=== PATIENT | female | born 1950 | race Caucasian/White ===

== ENCOUNTER 2017-05-25 11:53 | Outpatient (CLI) ==
[2017-05-25 13:06] LABS: BASOPHILS # (AUTO) 0.1 K/uL (0-0.2); EOSINOPHILS # (AUTO) 0.2 K/ul (0.0-0.7); EOSINOPHILS % (AUTO) 2.4 % (0.0-7.0); HEMATOCRIT 43.2 % (37.0-47.0); HEMOGLOBIN 14.6 g/dl (12.0-16.0); IMMATURE GRANULOCYTE % (AUTO) 0.3 % (0.0-5.0); LYMPHOCYTES # (AUTO) 2.8 K/uL (0.60-3.4); MEAN CORPUSCULAR HEMOGLOBIN 31.3 pg (27.0-31.0); MEAN CORPUSCULAR HGB CONC 33.8 (31.8-35.4); MEAN CORPUSCULAR VOLUME 92.5 fl (81.0-99.0); MONOCYTES # (AUTO) 0.7 K/uL (0.4-2.0); MONOCYTES % (AUTO) 9.6 (0-10); NEUTROPHILS # (AUTO) 3.4 K/ul (2.0-6.9); NEUTROPHILS % (AUTO) 47.7; PLATELET COUNT 241 10^3/uL (140-440); RED BLOOD COUNT 4.67 10^6/ul (4.20-5.40); WHITE BLOOD COUNT 7.05 K/ul (4.6-10.2)
[2017-05-25 13:25] LABS: ALBUMIN/GLOBULIN RATIO 1.11; ANION GAP 16.1; BILIRUBIN,TOTAL 0.57 mg/dL (0.00-1.20); BUN/CREATININE RATIO 7.95; CHOL/HDL RATIO 3.6 (4.5-5.5); CREATININE 0.88 mg/dL (0.60-1.30); POTASSIUM 4.1 mmol/L (3.5-5.10); TOTAL PROTEIN 7.6 g/dL (5.8-8.1)
== END 2017-05-25 11:54 | disposition home or self-care (01) ==
LOC: LAB 11:53
PROVIDERS: ATTEND Nurse Practitioner Family
DX: E75.6 Lipid storage disorder, unspecified (principal); I10 Essential (primary) hypertension
CPT/HCPCS: 36415; 80053; 80061; 84443; 85025

== ENCOUNTER 2017-08-21 16:08 | Outpatient (CLI) ==
[2017-08-21 16:15] LABS: BASOPHILS # (AUTO) 0.1 K/uL (0-0.2); BASOPHILS % (AUTO) 0.7 % (0.0-3.0); EOSINOPHILS # (AUTO) 0.1 K/ul (0.0-0.7); EOSINOPHILS % (AUTO) 1.2 % (0.0-7.0); HEMATOCRIT 42.1 % (37.0-47.0); HEMOGLOBIN 14.6 g/dl (12.0-16.0); IMMATURE GRANULOCYTE % (AUTO) 0.2 % (0.0-5.0); LYMPHOCYTES # (AUTO) 2.8 K/uL (0.60-3.4); LYMPHOCYTES % (AUTO) 33.6 (10.0-50.0); MEAN CORPUSCULAR HEMOGLOBIN 31.4 pg (27.0-31.0); MEAN CORPUSCULAR HGB CONC 34.7 (31.8-35.4); MEAN CORPUSCULAR VOLUME 90.5 fl (81.0-99.0); MONOCYTES # (AUTO) 0.6 K/uL (0.4-2.0); MONOCYTES % (AUTO) 7.4 (0-10); NEUTROPHILS # (AUTO) 4.8 K/ul (2.0-6.9); NEUTROPHILS % (AUTO) 56.9; PLATELET COUNT 279 10^3/uL (140-440); RED BLOOD COUNT 4.65 10^6/ul (4.20-5.40); WHITE BLOOD COUNT 8.46 K/ul (4.6-10.2)
[2017-08-21 17:30] LABS: ALBUMIN 3.8 g/dL (3.4-5.0); ALBUMIN/GLOBULIN RATIO 1.06; ANION GAP 14.7; BILIRUBIN,TOTAL 0.53 mg/dL (0.00-1.20); BUN/CREATININE RATIO 9.75; CALCIUM 10.2 mg/dL (8.2-10.2); CREATININE 0.82 mg/dL (0.60-1.30); POTASSIUM 3.7 mmol/L (3.5-5.10); TOTAL PROTEIN 7.4 g/dL (5.8-8.1)
== END 2017-08-21 16:09 | disposition home or self-care (01) ==
LOC: LAB 16:08
PROVIDERS: ATTEND Nurse Practitioner Family
DX: F41.9 Anxiety disorder, unspecified (principal); I10 Essential (primary) hypertension; E75.6 Lipid storage disorder, unspecified
CPT/HCPCS: 36415; 80053; 84439; 84443; 85025

== ENCOUNTER 2017-08-22 13:20 | Outpatient (CLI) ==
--- NOTE | 2017-08-22 13:59 | US ---
Exam: Ferrer-scale and color Doppler ultrasonographic evaluation of the internal carotid arteries. Comparison: None available. Reason for exam: Dizziness and giddiness FINDINGS: There is a moderate amount of atheromatous plaque seen in the proximal right internal fish tid artery at the level of the bulb. The right external carotid artery measures 80 / 10 cm/sec. The right common carotid artery measures 50 / 20 cm/sec. The right internal carotid artery peak systolic velocity measures 80 cm/sec. The right internal carotid artery/CCA PSV ratio measures 1.7. The right internal carotid artery end-diastolic velocity measures 30 cm/sec. There is normal antegrade right vertebral artery flow. There is a moderate amount of plaque seen in the proximal left internal and external carotid arteries . The left external carotid artery measures 32 / 5 cm/sec. The left common carotid artery measures 60 / 20 cm/sec. The left internal carotid artery peak systolic velocity measures 80 cm/sec. The left internal carotid artery/CCA PSV ratio measures 1.2. The left internal carotid artery end-diastolic velocity measures 30 cm/sec. There is normal antegrade left vertebral artery flow. Impression: No significant stenotic disease is seen by peak systolic velocity measurements in either the right or left internal carotid arteries.
== END 2017-08-22 13:21 | disposition home or self-care (01) ==
LOC: RAD 13:20
PROVIDERS: ATTEND Nurse Practitioner Family
DX: R42 Dizziness and giddiness (principal); F17.200 Nicotine dependence, unspecified, uncomplicated

== ENCOUNTER 2017-09-05 13:45 | Outpatient (CLI) | payer OTHER ==
--- NOTE | 2017-09-05 14:57 | CT ---
EXAM: CT ABDOMEN AND PELVIS HISTORY: Generalized abdominal pain TECHNIQUE: CT abdomen and pelvis without intravenous contrast. Images were reconstructed using 5 mm section thickness. Reformations were prepared. COMPARISON: None FINDINGS: Diagnostic limitations exist without including contrast enhanced images. No focal hepatic or splenic lesions identified. Gallbladder appears to be absent. Pancreas and adrenal glands are within rosalina l limits. There is a 3.8 cm cystic mass of the upper right renal cortex probably representing a cyst . Kidneys and visualized ureters were otherwise unremarkable. Severe atherosclerotic disease withou t aneurysmal caliber of the aorta. Stomach is within normal limits. What may represent a few portions of the appendix appear normal. There is mild wall thickening of the transverse colon and the descending colon may have mild surround ing fat stranding. No diverticula are noticed at these levels. Uterus has a few coarse calcificatio ns consistent with small fibroids. Urinary bladder is within normal limits. There is no ascites. N onobstructive bowel gas pattern. No ventral abdominal wall hernia. The bones reveal no acute abnormality. Lung bases are free of acu te infiltrate and there is no pneumoperitoneum identified. IMPRESSION: 1. Findings suggesting probable mild colitis extending from the transverse into the rectum. No bowel obstruction or ascites. No intra-abdominal abscess or free air. Consider infectious, inflammatory o r ischemic etiologies. 2. Severe atherosclerotic disease.
[2017-09-05 18:06] LABS: BASOPHILS # (AUTO) 0.1 K/uL (0-0.2); BASOPHILS % (AUTO) 0.7 % (0.0-3.0); EOSINOPHILS # (AUTO) 0.2 K/ul (0.0-0.7); EOSINOPHILS % (AUTO) 2.3 % (0.0-7.0); HEMATOCRIT 42.4 % (37.0-47.0); HEMOGLOBIN 14.6 g/dl (12.0-16.0); IMMATURE GRANULOCYTE % (AUTO) 0.3 % (0.0-5.0); LYMPHOCYTES % (AUTO) 29.2 (10.0-50.0); MEAN CORPUSCULAR HEMOGLOBIN 31.1 pg (27.0-31.0); MEAN CORPUSCULAR HGB CONC 34.4 (31.8-35.4); MEAN CORPUSCULAR VOLUME 90.4 fl (81.0-99.0); MONOCYTES # (AUTO) 0.9 K/uL (0.4-2.0); MONOCYTES % (AUTO) 8.6 (0-10); NEUTROPHILS # (AUTO) 6.1 K/ul (2.0-6.9); NEUTROPHILS % (AUTO) 58.9; PLATELET COUNT 270 10^3/uL (140-440); RED BLOOD COUNT 4.69 10^6/ul (4.20-5.40); WHITE BLOOD COUNT 10.42 K/ul (4.6-10.2)
[2017-09-05 18:18] LABS: ALBUMIN 3.3 g/dL (3.4-5.0); ALBUMIN/GLOBULIN RATIO 0.92; ANION GAP 12.7; BILIRUBIN,TOTAL 0.48 mg/dL (0.00-1.20); BUN/CREATININE RATIO 8.53; CALCIUM 9.8 mg/dL (8.2-10.2); CREATININE 0.82 mg/dL (0.60-1.30); POTASSIUM 3.7 mmol/L (3.5-5.10); TOTAL PROTEIN 6.9 g/dL (5.8-8.1)
== END 2017-09-05 13:46 | disposition home or self-care (01) ==
LOC: RAD 13:45
PROVIDERS: ATTEND Nurse Practitioner Family
DX: R10.84 Generalized abdominal pain (principal); R19.7 Diarrhea, unspecified
CPT/HCPCS: 36415; 80053; 82150; 83690; 85025

== ENCOUNTER 2017-11-11 09:36 | Emergency (ER) ==
[2017-11-11 09:48] VITALS: BP 143/97; TEMP 98.4; BMI 20.1
[2017-11-11] MEDS ORDERED: ZOFRAN 4 MG/2 ML IVP STA (10:10)
[2017-11-11] MEDS ORDERED: DEMEROL 25 MG/ML VIAL IVP STA (10:10)
[2017-11-11] MEDS ORDERED: SODIUM CHLORIDE 500 ML IV STA (10:10)
--- NOTE | 2017-11-11 10:16 | ED.PDOC ---
General ED Provider: Dr. YADIRA KELLY Chief Complaint: Nausea/Vomiting Stated Complaint: Been voming since morning, 4- 5 time, no blood, no bile. had abdominal pain and cramping. Time Seen by Physician: 10:15 Mode of Arrival: Walk-In Information Source: Patient Primary Care Provider: YADIRA KELLY[facility] Nursing and Triage Documentation Reviewed and Agree: Yes GI Complaint Exam - Vomiting/Diarrhea Complaint/Exam Symptoms Are: Still present Episodes of Vomiting over last 24 Hours: 4 Episodes of Diarrhea Over Last 24 Hours: 0 Initial Severity: Moderate Current Severity: Mild Character of Vomiting: Reports: Non-bilious Aggravating: Reports: Food, Position, Movement Alleviating: Reports: None Associated Signs and Symptoms: Reports: Light-headedness, Abdominal pain, Cramping. Denies: Dizziness, Melena, Hematemesis, Fever Abdominal Findings: Absent: Pulsatile mass, Abdominal distention, Unequal femoral pulses, Rebound tenderness Differential Diagnoses: Gastritis, Viral Gastroenteritis, Bacterial Gastroenteritis Review of Systems - Review Of Systems Constitutional: Reports: Malaise, Weakness Eyes: Reports: No symptoms Ears, Nose, Mouth, Throat: Reports: No symptoms Respiratory: Reports: No symptoms Cardiac: Reports: No symptoms GI: Reports: Abdominal pain, Nausea, Vomiting : Reports: No symptoms Musculoskeletal: Reports: No symptoms Skin: Reports: No symptoms Neurological: Reports: No symptoms Endocrine: Reports: No symptoms Hematologic/Lymphatic: Reports: No symptoms All Other Systems: Reviewed and Negative Past Medical History - Past Medical History Previously Healthy: Yes Endocrine: Reports: None Cardiovascular: Reports: Hypertension Respiratory: Reports: None Hematological: Reports: None Gastrointestinal: Reports: None Genitourinary: Reports: None Neuro/Psych: Reports: Anxiety Musculoskeletal: Reports: Back Pain, Joint Pain Cancer: Reports: None Last Menstrual Period: post menopausal - Surgical History General Surgical History: Reports: None - Family History Family History: Reports: None - Social History Smoking Status: Current every day smoker, Heavy tobacco smoker Smoking Cessation Counseling Time: > 10 min Hx Substance Use: No Alcohol Screening: None Physical Exam - Physical Exam Appearance: Ill-appearing, Thin Eyes: KRISTINE, EOMI, Conjunctiva clear ENT: Ears normal, Nose normal, Oropharynx normal Respiratory: Airway patent, Breath sounds clear, Breath sounds equal, Respirations nonlabored Cardiovascular: RRR, Pulses normal, No rub, No murmur GI/: Soft, Tender, Bowel sounds hyperactive Musculoskeletal: Normal strength, ROM intact, No edema, No calf tenderness Skin: Warm, Dry, Normal color Neurological: Sensation intact, Motor intact, Reflexes intact, Cranial nerves intact, Alert, Oriented Psychiatric: Affect appropriate, Mood appropriate Critical Care Note - Critical Care Note Total Time (mins): 15 Course - Course Hematology/Chemistry: 11/11/17 10:18 Orders, Labs, Meds: Lab Review 11/11/17 10:18 WBC 9.66 RBC 4.89 Hgb 15.3 Hct 44.3 MCV 90.6 MCH 31.3 H MCHC 34.5 RDW Coeff of Collette 13.8 Plt Count 245 Immature Gran % (Auto) 0.4 Neut % (Auto) 87.6 Lymph % (Auto) 6.1 L [place] % (Auto) 3.6 Eos % (Auto) 1.9 Baso % (Auto) 0.4 Immature Gran # (Auto) 0.0 Neut # 8.5 H Lymph # 0.6 [place] # 0.4 Eos # 0.2 Baso # 0.0 Orders Category Date Time Status ED IV/MEDIPORT/POWERPORT .ONCE EMERGENCY 11/11/17 10:10 Active CBC W/ AUTO DIFF Stat LAB 11/11/17 10:18 Completed COMPREHENSIVE METABOLIC PANEL Stat LAB 11/11/17 10:18 Received 0.9 % Sodium Chloride [Saline Flush] MEDS 11/11/17 10:10 Active 1 syr IVF PRN PRN Meperidine HCl/Pf [Demerol 25 mg/ml Vial] MEDS 11/11/17 10:10 Discontinued 25 mg IVP ONCE STA Ondansetron HCl/Pf [Zofran 4 mg/2 ml] MEDS 11/11/17 10:10 Discontinued 4 mg IVP ONCE STA Sodium Chloride 0.9% [Sodium Chloride] 500 ml MEDS 11/11/17 10:[address] ABDOMEN/PELVIS WO CONTRAST Stat RADS 11/11/17 10:10 Taken Medications Generic Name Dose Route Start Last Admin Trade Name Freq PRN Reason Stop Dose Admin Sodium Chloride 500 mls @ 500 mls/hr 11/11/17 10:10 Sodium Chloride IV 11/11/17 11:09 BOLUS STA Sodium Chloride 1 syr 11/11/17 10:10 Saline Flush IVF PRN PRN To flush IV Discontinued Medications Generic Name Dose Route Start Last Admin Trade Name La PRN Reason Stop Dose Admin Meperidine HCl 25 mg 11/11/17 10:10 Demerol 25 Mg/Ml Vial IVP 11/11/17 10:11 ONCE STA Ondansetron HCl 4 mg 11/11/17 10:10 Zofran 4 Mg/2 Ml IVP 11/11/17 10:11 ONCE STA Vital Signs: Temp Pulse Resp BP Pulse Ox 11/11/17 09:37 98.4 F 89 20 143/97 H 96 Departure - Departure Time of Disposition: 10:33 Disposition: HOME SELF-CARE Discharge Problem: Gastroenteritis Instructions: Gastroenteritis (ED) Condition: Good Pt referred to PMD for follow-up: Yes Additional Instructions: Increase Hydration soft diet for 3-4 days If not better needs f/u with PMD Prescriptions: Ondansetron HCl [Zofran] 4 mg PO TID #14 tablet Allergies/Adverse Reactions: Allergies codeine Allergy (Severe, Verified 11/11/17 09:48) itching fexofenadine HCl [From [place]] Allergy (Mild, Verified 11/11/17 09:48) flu like symptoms hydrocodones Allergy (Severe, Uncoded 05/25/17 09:21) difficulty breathing Patient will notify drugstore Home Medications: Ambulatory Orders Cetirizine HCl [Zyrtec] 10 mg PO d 05/25/17 Dicyclomine HCl [Bentyl] 10 mg PO QID PRN 05/25/17 Methocarbamol [Robaxin-750] 750 mg PO BID PRN 05/25/17 Ondansetron HCl [Zofran] 4 mg PO TID #14 tablet 11/11/17 Disposition Discussed With: Patient
[2017-11-11 10:24] LABS: BASOPHILS % (AUTO) 0.4 % (0.0-3.0); EOSINOPHILS # (AUTO) 0.2 K/ul (0.0-0.7); EOSINOPHILS % (AUTO) 1.9 % (0.0-7.0); HEMATOCRIT 44.3 % (37.0-47.0); HEMOGLOBIN 15.3 g/dl (12.0-16.0); IMMATURE GRANULOCYTE % (AUTO) 0.4 % (0.0-5.0); LYMPHOCYTES # (AUTO) 0.6 K/uL (0.60-3.4); LYMPHOCYTES % (AUTO) 6.1 (10.0-50.0); MEAN CORPUSCULAR HEMOGLOBIN 31.3 pg (27.0-31.0); MEAN CORPUSCULAR HGB CONC 34.5 (31.8-35.4); MEAN CORPUSCULAR VOLUME 90.6 fl (81.0-99.0); MONOCYTES # (AUTO) 0.4 K/uL (0.4-2.0); MONOCYTES % (AUTO) 3.6 (0-10); NEUTROPHILS # (AUTO) 8.5 K/ul (2.0-6.9); NEUTROPHILS % (AUTO) 87.6; PLATELET COUNT 245 10^3/uL (140-440); RED BLOOD COUNT 4.89 10^6/ul (4.20-5.40); WHITE BLOOD COUNT 9.66 K/ul (4.6-10.2)
--- NOTE | 2017-11-11 10:40 | CT ---
EXAM: CT scan of the abdomen and pelvis without contrast HISTORY: Abdominal pain TECHNIQUE: Imaging of the abdomen and pelvis was performed without contrast. 3 mm thin axial images and coronal and sagittal reconstructions were provided for interpretation. Comparison 09/05/2017 CT scan of the abdomen and pelvis. FINDINGS: The patient has had previous cholecystectomy. The pancreas, adrenal glands and kidneys ap pear normal. The proximal ureters are normal size. There is stable appearance of a prominent cyst s een arising from the upper pole of the right kidney. The small bowel loops are normal in caliber. Th ere is no free air. No acute abnormalities are seen within the anterior abdominal wall. The helical images obtained through the pelvis demonstrate a normal appearance of the rectum, urinary bladder. There is no free fluid seen within the pelvis. There is a calcified fibroid seen within t he uterus. The appendix appears normal. Lung bases are clear. No lytic or blastic lesions are seen w ithin the osseous structures. No retroperitoneal abnormalities are seen. IMPRESSION: There is no bowel obstruction or acute inflammatory change seen within the abdomen and p teresa. There is no ureteral obstruction. There has been previous cholecystectomy.
[2017-11-11 10:41] LABS: ALBUMIN/GLOBULIN RATIO 1.08; ANION GAP 15.3; BILIRUBIN,TOTAL 0.72 mg/dL (0.00-1.20); BUN/CREATININE RATIO 15.9; CALCIUM 9.9 mg/dL (8.2-10.2); CREATININE 0.88 mg/dL (0.60-1.30); POTASSIUM 4.3 mmol/L (3.5-5.10); TOTAL PROTEIN 7.7 g/dL (5.8-8.1)
== END 2017-11-11 12:07 | disposition home or self-care (01) ==
LOC: ED 09:36
DX: K52.9 Noninfective gastroenteritis and colitis, unspecified (principal); F17.210 Nicotine dependence, cigarettes, uncomplicated
CPT/HCPCS: 36415; 80053; 85025; 96361; 96374; 99283

== ENCOUNTER 2018-01-19 12:44 | Outpatient (CLI) ==
--- NOTE | 2018-01-19 14:04 | CT ---
EXAM: CT of the pelvis without contrast History: Pelvic pain. Comparison: CT lumbar spine 01/19/2018, CT abdomen pelvis 11/11/2017 Technique: Multiplanar CT images through the pelvis were obtained without the administration of IV c ontrast Findings: No bladder wall thickening. Partially calcified uterine fibroids again noted. Scattered colonic stool. No pelvic fluid. The visualized appendix is not dilated or inflamed. No free air. Atherosclerotic vascular calcifications. No pathologically enlarged lymph nodes. No acute fracture or dislocation. Mild narrowing of bilateral hip joints. Impression: 1. No acute osseous abnormality. 2. Mild arthritis of bilateral hip joints. 3. Uterine fibroids again noted. 4. Atherosclerotic vascular disease. 5. Mild arthritis of bilateral hip joints.
--- NOTE | 2018-01-19 14:12 | CT ---
EXAM: CT LUMBAR SPINE HISTORY: Back pain, sciatica TECHNIQUE: CT lumbar spine without contrast. 3-mm axial sections. Coronal and sagittal reformation s. COMPARISON: 11/11/2017 CT abdomen and pelvis FINDINGS: Bones appear somewhat demineralized. There is no loss of vertebral body height or spondylolisthesis. Sacroiliac joints are within normal limits. Degenerative changes include facet arthropathy and disc bulging. These are most apparent at L2/L3 we re a posterior disc osteophyte complex as well as facet arthropathy and ligamentum flavum hypertrophy lead to at least moderate central canal stenosis and mild bilateral neural foraminal narrowing. At L 3/L4, there are similar degenerative changes which lead to at least moderate central canal stenosis a nd probable moderate bilateral neural foraminal narrowing. At L4/L5, there is severe central canal s tenosis and at least moderate bilateral neural foraminal narrowing. There is no end plate destruction or paraspinal fluid collection. Incidental findings include a cystic mass of the right kidney measu ring approximately 4.1 cm probably representing a cyst. There is moderate atherosclerotic disease. At least one small calcified fibroid of the uterus is suggested. IMPRESSION: 1. No acute fracture or subluxation. There is no spondylolisthesis or loss of vertebral body height . 2. Degenerative changes which are significant at the lower spine especially L4/L5 where the central canal stenosis is severe. Correlation with MRI can be made if indicated.
== END 2018-01-19 12:45 | disposition home or self-care (01) ==
LOC: RAD 12:44
PROVIDERS: ATTEND Internal Medicine
DX: R10.2 Pelvic and perineal pain (principal); M54.30 Sciatica, unspecified side

== ENCOUNTER 2018-03-09 10:33 | Outpatient (CLI) | payer OTHER ==
--- NOTE | 2018-03-09 13:02 | CT ---
EXAM: CT of the left shoulder without contrast HISTORY: Pain after lifting something heavy. COMPARISON: None TECHNIQUE: Serial axial images of the left shoulder were obtained without contrast. These were view ed in multiple planes. Finding There is no displaced fracture or dislocation. There is minimal narrowing of the glenohumera l joint and the acromioclavicular joint with mild osteophyte formation. There is osteophyte formatio n of the superior aspect of the glenoid. No discrete fracture is identified. The adjacent osseous s tructures are normal. The soft tissues demonstrate a left shoulder effusion. The soft tissues are u nremarkable. IMPRESSION: 1. Left shoulder effusion with no displaced fracture or dislocation. 2. Mild scattered degenerative disease and osteophyte formation in the acromioclavicular joint and g lenohumeral joint.
== END 2018-03-09 10:34 | disposition home or self-care (01) ==
LOC: RAD 10:33
PROVIDERS: ATTEND Internal Medicine
DX: M25.512 Pain in left shoulder (principal); S49.92XA Unspecified injury of left shoulder and upper arm, initial encounter

== ENCOUNTER 2018-09-14 13:01 | Outpatient (CLI) | payer OTHER ==
--- NOTE | 2018-09-14 19:18 | DI ---
EXAM: PA and lateral views of the chest HISTORY: Cough with history of smoking COMPARISON: None FINDINGS: The cardiomediastinal silhouette is normal. On lateral view, the ascending aorta appears mildly enlarged. There is no pneumothorax or pleural effusion. There is no consolidation, nodule or mass. There is mild hyperinflation. The osseous structures demonstrate degenerative disease of the s pine. IMPRESSION: Mild hyperinflation that may represent a component of obstructive pulmonary physiology w ith no acute consolidation. On lateral view, the ascending aorta appears prominent. If further evaluation is indicated, CT may b e obtained.
== END 2018-09-14 13:02 | disposition home or self-care (01) ==
LOC: RAD 13:01
PROVIDERS: ATTEND Internal Medicine
DX: R05 Cough (principal); F17.210 Nicotine dependence, cigarettes, uncomplicated

== ENCOUNTER 2018-09-20 07:22 | Outpatient (CLI) | payer OTHER ==
--- NOTE | 2018-09-20 09:12 | CT ---
EXAM: CT chest without contrast HISTORY: Abnormal chest radiograph, prominent ascending aorta COMPARISON: Chest radiograph 09/14/2018 TECHNIQUE: CT chest performed without intravenous contrast. Coronal and sagittal reformatted images obtained. FINDINGS: Thoracic inlet unremarkable. Heart mildly enlarged. Coronary calcifications. No pericardi al effusion. Small hiatal hernia. No lymphadenopathy identified in the chest. Granulomatous calcif ication. No lymphadenopathy identified in the chest, noting sub centimeter lymph nodes in the medias tinum and right hilar region. Visualized portion upper abdomen demonstrates no acute abnormality. R ight renal cyst measures 4.5 cm. Patient status post cholecystectomy. No acute abnormalities of the bones. Degenerative change in the spine. Central airway patent. Mild centrilobular emphysema. No airspace consolidation. No pleural effusion. No pneumothorax. Mild scattered scarring. Mild ecta leoncio ascending aorta measuring 3.6 cm. Mild to moderate atherosclerosis. IMPRESSION: 1. Mild ectasia ascending aorta measuring 3.6 cm. 2. Cardiomegaly. 3. Coronary calcifications. Atherosclerosis. 4. Mild emphysema. 5. Scattered scarring. 6. Small hiatal hernia.
== END 2018-09-20 07:23 | disposition home or self-care (01) ==
LOC: RAD 07:22
PROVIDERS: ATTEND Internal Medicine
DX: R91.8 Other nonspecific abnormal finding of lung field (principal); I77.819 Aortic ectasia, unspecified site
CPT/HCPCS: 36415; 82565

== ENCOUNTER 2019-05-24 13:13 | Emergency (ER) ==
[2019-05-24 13:28] VITALS: TEMP 98.1; BMI 24.9
[2019-05-24 13:32] VITALS: BP 160/114
--- NOTE | 2019-05-24 14:24 | DI ---
EXAM: Right foot three views HISTORY: Fall COMPARISON: None FINDINGS: No fracture or dislocation. Joint spaces maintained. Mild posterior calcaneal enthesopath y. No focal soft tissue abnormality. IMPERSSION: No fracture or dislocation
--- NOTE | 2019-05-24 14:24 | DI ---
EXAM: RIGHT ANKLE THREE VIEWS HISTORY: Fall, ankle pain FINDINGS: There is no fracture or dislocation. No joint effusion. No significant arthropathy of th e ankle joints proper. There is mild bony spurring of the posterior calcaneus consistent with early enthesopathy. Soft tissues were otherwise unremarkable. IMPRESSION: 1. No fracture or dislocation identified.
--- NOTE | 2019-05-24 14:26 | DI ---
EXAM: Left foot three views HISTORY: Fall COMPARISON: None FINDINGS: No fracture or dislocation. Mild scattered osteoarthritic change. Posterior calcaneal en thesopathy. IMPERSSION: No fracture or dislocation.
--- NOTE | 2019-05-24 14:55 | CT ---
EXAM: CT BRAIN HISTORY: Head injury TECHNIQUE: CT brain without intravenous contrast. 5-mm axial sections with Reformations. COMPARISON: None FINDINGS: There is mild generalized atrophy. There is relatively severe periventricular and deep white matter low attenuation which although nonspecific is suggestive of chronic microvascular ischemic change. O ld right basal ganglia lacunar infarction. Brain otherwise is unremarkable without evidence of hemorrhage or large vessel distribution recent is chemic infarction. There is no suggestion of acute hydrocephalus or subdural fluid collection. No m ass or mass effect. The cranium is intact. There is a left mastoid process effusion. Paranasal sinuses are clear IMPRESSION: 1. No acute intracranial injury or process. Involutional changes greater than expected for age. 2. No skull fracture. 3. Small left left mastoid process effusion.
--- NOTE | 2019-05-24 14:56 | CT ---
EXAM: CT thoracic spine without contrast HISTORY: Fall COMPARISON: None TECHNIQUE: CT thoracic spine performed without intravenous contrast. Coronal and sagittal reformatt ed images obtained. FINDINGS: The vertebral bodies normal height. No fracture. No subluxation. Mild to moderate multi level chronic discogenic degenerative disease with intervertebral space narrowing, marginal osteophyt e formation. Central canal grossly patent. No paravertebral soft tissue abnormality. Atheroscleros is. Coronary calcifications. Granulomatous calcification. Right renal cyst. Mild emphysema. Small fat-containing umbilical hernia. IMPRESSION: 1. No fracture or subluxation. 2. Chronic discogenic degenerative disease. 3. Emphysema
--- NOTE | 2019-05-24 15:01 | CT ---
EXAM: CT cervical spine. HISTORY: Fall, trauma. TECHNIQUE: CT cervical spine without contrast. Detailed axial sections. Coronal and sagittal re-fo rmations. COMPARISON: None FINDINGS: There is no fracture, loss of vertebral body height or subluxation. Facet joints are covered. Late ral masses of C1 and C2 are normally aligned and the odontoid process is intact. Degenerative disc a nd facet disease leads to mild multilevel central canal stenosis and neural foraminal narrowing. No paraspinal hematoma. Incidental note of atherosclerotic disease IMPRESSION: 1. No acute fracture or subluxation.
--- NOTE | 2019-05-24 15:38 | ED.PDOC ---
General ED Provider: Dr. STACIE WATSON Chief Complaint: Headache Stated Complaint: Fall from ladder two days ago. Complains of headache, neck pain, bilateral foot pain, and right ankle pain. Patient previously had hip and knee x-ray at orthopedic center and they were negative. Time Seen by Physician: 13:20 Mode of Arrival: Walk-In Information Source: Patient Exam Limitations: No limitations Primary Care Provider: CHELLY BROWN Nursing and Triage Documentation Reviewed and Agree: Yes Does patient meet sepsis criteria?: No System Inflammatory Response Syndrome: Not Applicable Sepsis Protocol: For patient's 13 years and over: Temp is 96.8 and below OR 101 and greater Pulse >90 BPM Resp >20/minute Acutely Altered Mental Status Are patient's symptoms suggestive of a new infection, such as: -Pneumonia -Skin, Soft Tissue -Endocarditis -UTI -Bone, Joint Infection -Implantable Device -Acute Abdominal Infection -Wound Infection -Meningitis -Blood Stream Catheter Infection -Unknown Trauma/Injury Complaint Exam - Trauma Complaint/Exam Location of Pain or Injury: Reports: Head (thoracic spine; denied lower back pain), Neck, Back Mechanism of Injury: Reports: Fall (step ladder) Onset/Duration: two days Symptoms Are: Still present Timing of Treatment: Delayed Initial Severity: Mild Current Severity: Mild Character: Reports: Aching Aggravating: Reports: None Alleviating: Reports: None Associated Signs and Symptoms: Denies: LOC, Confusion, Memory loss, Lethargy, Vomiting, Bleeding, Bruising, Swelling, Extremity disuse, Painful respiration, Hoarseness, Dysphagia, Hemoptysis, Significant blood loss Related Surgical History: Reports: None Nexus Low Risk Criteria: No post-midline CS tender, No evidence of intoxicat., No Altered LOC, No focal neuro deficit, No distracting injuries Glascow Coma Scale (see protocol): 15; no motor, sensory, or abnormal sensations. Ambulatory in ER. Review of Systems - Review Of Systems Constitutional: Reports: No symptoms Eyes: Reports: No symptoms Ears, Nose, Mouth, Throat: Reports: No symptoms Respiratory: Reports: No symptoms Cardiac: Reports: No symptoms GI: Reports: No symptoms : Reports: No symptoms Musculoskeletal: Reports: Joint pain (right and left foot pain, neck pain) Skin: Reports: No symptoms Neurological: Reports: Headache Endocrine: Reports: No symptoms Hematologic/Lymphatic: Reports: No symptoms All Other Systems: Reviewed and Negative Past Medical History - Past Medical History Previously Healthy: Yes Endocrine: Reports: None Cardiovascular: Reports: Hypertension Respiratory: Reports: None Hematological: Reports: None Gastrointestinal: Reports: None Genitourinary: Reports: None Neuro/Psych: Reports: Anxiety Musculoskeletal: Reports: Back Pain, Joint Pain Cancer: Reports: None Last Menstrual Period: Post Menopausal - Surgical History General Surgical History: Reports: None - Family History Family History: Reports: None - Social History Smoking Status: Current every day smoker Hx Substance Use: No Alcohol Screening: Occasionally - Immunizations Tetanus Shot up to Date: No Physical Exam - Physical Exam Appearance: Well-appearing, No pain distress, Well-nourished Eyes: KRISTINE, EOMI, Conjunctiva clear ENT: Ears normal, Nose normal, Oropharynx normal Respiratory: Airway patent, Breath sounds clear, Breath sounds equal, Respirations nonlabored Cardiovascular: RRR, Pulses normal, No rub, No murmur GI/: Soft, Nontender, No masses, Bowel sounds normal, No Organomegaly Musculoskeletal: Normal strength, ROM intact, No edema, No calf tenderness Skin: Warm, Dry, Normal color Neurological: Sensation intact, Motor intact, Reflexes intact, Cranial nerves intact, Alert, Oriented Psychiatric: Affect appropriate, Mood appropriate Interpretation - Radiology Interpretation Radiology Interpretation By: Radiologist Radiology Results: No acute changes Exam Interpreted: CT Scan Re-Evaluation - Re-Evaluation Time of Re-Evaluation: 14:30 Status: Improved Vital Signs Stable: Yes Pain Level: 0 Appearance: NAD Lungs: Clear Skin: Warm and Dry Neuro: Alert and Oriented X3 CV: RRR Critical Care Note - Critical Care Note Total Time (mins): 0 Course - Course Orders, Labs, Meds: Orders Category Date Time Status ANKLE, RIGHT MIN 3 VIEWS Stat RADS 05/24/19 13:[address] CERVICAL SPINE W/O CONTRAST Stat RADS 05/24/19 13:[address] HEAD W/O CONTRAST Stat RADS 05/24/19 13:[address] THORACIC SPINE W/O CONTRAST Stat RADS 05/24/19 13:40 Completed FOOT, LEFT 3 VIEWS Stat RADS 05/24/19 13:43 Completed FOOT, RIGHT 3 VIEWS Stat RADS 05/24/19 13:43 Completed Vital Signs: Temp Pulse Resp BP Pulse Ox 05/24/19 13:31 160/114 H 05/24/19 13:20 98.1 F 66 16 162/110 H 96 Departure - Departure Time of Disposition: 15:41 Disposition: HOME SELF-CARE Discharge Problem: Sprain of ligament of cervical spine region Headache Qualifiers: Headache type: unspecified Intractability: not intractable Foot sprain Qualifiers: Encounter type: initial encounter Laterality: right Qualified Code(s): S93.601A - Unspecified sprain of right foot, initial encounter Instructions: Acute Headache (ED), Cervical Sprain (ED) Condition: Good Pt referred to PMD for follow-up: Yes IPMP verified?: No Additional Instructions: Please call your Family Physician as soon as possible to schedule a follow-up appointment. Allergies/Adverse Reactions: Allergies codeine Allergy (Severe, Verified 05/24/19 13:39) itching fexofenadine HCl [From Ashlyn] Allergy (Mild, Verified 05/24/19 13:39) flu like symptoms hydrocodones Allergy (Severe, Uncoded 05/25/17 09:21) difficulty breathing Patient will notify drugstore Home Medications: Ambulatory Orders Cetirizine HCl [Zyrtec] 10 mg PO d 05/25/17 Dicyclomine HCl [Bentyl] 10 mg PO QID PRN 05/25/17 Methocarbamol [Robaxin-750] 750 mg PO BID PRN 05/25/17 Ondansetron HCl [Zofran] 4 mg PO TID #14 tablet 11/11/17
== END 2019-05-24 16:10 | disposition home or self-care (01) ==
LOC: ED 13:13
DX: S13.9XXA Sprain of joints and ligaments of unspecified parts of neck, initial encounter (principal); S93.601A Unspecified sprain of right foot, initial encounter; R51 Headache; M79.672 Pain in left foot; M54.6 Pain in thoracic spine; W11.XXXA Fall on and from ladder, initial encounter; F17.210 Nicotine dependence, cigarettes, uncomplicated; I10 Essential (primary) hypertension
CPT/HCPCS: 99283

== ENCOUNTER 2024-02-29 13:48 | Observation (INO) ==
[2024-02-29 14:40] LABS: BASOPHILS # (AUTO) 0.1 K/uL (0-0.2); BASOPHILS % (AUTO) 0.5 % (0.0-3.0); EOSINOPHILS # (AUTO) 0.2 K/ul (0.0-0.7); EOSINOPHILS % (AUTO) 1.6 % (0.0-7.0); HEMATOCRIT 43.8 % (37.0-47.0); HEMOGLOBIN 14.1 g/dl (12.0-16.0); IMMATURE GRANULOCYTE # (AUTO) 0.1 (0.0-1.0); IMMATURE GRANULOCYTE % (AUTO) 0.7 % (0.0-5.0); LYMPHOCYTES # (AUTO) 3.2 K/uL (0.60-3.4); LYMPHOCYTES % (AUTO) 25.2 (10.0-50.0); MEAN CORPUSCULAR HEMOGLOBIN 30.2 pg (27.0-31.0); MEAN CORPUSCULAR HGB CONC 32.2 (31.8-35.4); MEAN CORPUSCULAR VOLUME 93.8 fl (81.0-99.0); MONOCYTES # (AUTO) 1.1 K/uL (0.4-2.0); MONOCYTES % (AUTO) 8.4 (0-10); NEUTROPHILS # (AUTO) 8.1 K/ul (2.0-6.9); NEUTROPHILS % (AUTO) 63.6 % (42.2-75.2); PLATELET COUNT 390 10^3/uL (140-440); RDW COEFFICIENT OF VARIATION 14.4 % (11.6-14.8); RED BLOOD COUNT 4.67 10^6/ul (4.20-5.40)
[2024-02-29 14:54] LABS: ALANINE AMINOTRANSFERASE 25.1 U/L (0-35); ALBUMIN 3.47 g/dL (3.5-5.0); ALKALINE PHOSPHATASE 98.9 U/L (53-141); ASPARTATE AMINO TRANSFERASE 26.3 U/L (14-36); BILIRUBIN,TOTAL 0.57 mg/dL (0.2-1.3); BLOOD UREA NITROGEN 18.6 mg/dL (7-17); CALCIUM 9.12 mg/dL (8.4-10.2); CARBON DIOXIDE 30.6 mmol/L (22-30.0); CHLORIDE 103.2 mmol/L (98-107); CREATININE 1.14 mg/dL (0.60-1.30); POTASSIUM 3.96 mmol/L (3.5-5.1); SODIUM 134.7 mmol/L (134.5-145); TOTAL PROTEIN 6.36 g/dL (6.3-8.2)
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
[2024-02-29 15:06] LABS: TROPONIN I < 0.012 ng/ml (0.0000-0.120)
[2024-02-29] MEDS: SODIUM CHLORIDE 1,000 ML IV ONE (15:22)
--- NOTE | 2024-02-29 16:35 | CT ---
EXAM: CTA OF THE PULMONARY ARTERIES WITH CONTRAST TECHNIQUE: CTA of the pulmonary arteries was performed with contrast. 2-D and 3-D reconstructions we re performed. HISTORY: Palpitations. Syncope. Contrast: 100 mL Omnipaque 350 COMPARISON: None. FINDINGS: Pulmonary arteries: No pulmonary embolus detected. Lungs/pleura: Emphysematous changes. Calcified granulomas are present. Chronic-appearing interstiti al changes. No pleural effusion. Mediastinum: Shotty nodes. None appear to be pathologically enlarged. Cardiovascular: No pericardial effusion. There is ectasia of the ascending thoracic aorta borderline aneurysm measuring up to 3.9 cm in the mid ascending aorta. There is dilatation of the aortic arch a nd there is a 3.1 cm aneurysm of the descending thoracic aorta. Mural thrombus is present in the aor ta at the abdominal pelvic junction. Chest wall/axillae/thoracic inlet: No mass or adenopathy. Imaged upper abdomen: Moderate hiatal hernia. Renal cysts appear post cholecystectomy. Bones: No aggressive osseous lesion identified. IMPRESSION: 1. No pulmonary embolus 2. Emphysematous changes 3. 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 4. Borderline aneurysmal measurements of the ascending thoracic aorta. 5. Hiatal hernia 6. Renal cyst on the right. All CT scans are performed using dose optimization techniques as appropriate to the performed exam an d includes at least one of the following: Automated exposure control, adjustment of the mA and/or kV according to size, and the use of iterative reconstruction technique. All CT scans are performed using dose optimization techniques as appropriate to the performed exam an d include at least one of the following: Automated exposure control, adjustment of the mA and/or kV according t o size, and the use of iterative reconstruction technique.
[2024-02-29] MEDS ORDERED: ZOFRAN 4 MG/2 ML IVP PRN (21:10)
[2024-02-29] MEDS ORDERED: TYLENOL PO PRN (21:10)
[2024-02-29 23:54] VITALS: BMI 31.3
[2024-03-01 05:47] LABS: BASOPHILS # (AUTO) 0.1 K/uL (0-0.2); BASOPHILS % (AUTO) 0.7 % (0.0-3.0); EOSINOPHILS # (AUTO) 0.2 K/ul (0.0-0.7); HEMATOCRIT 41.6 % (37.0-47.0); HEMOGLOBIN 13.7 g/dl (12.0-16.0); IMMATURE GRANULOCYTE # (AUTO) 0.1 (0.0-1.0); IMMATURE GRANULOCYTE % (AUTO) 0.6 % (0.0-5.0); LYMPHOCYTES # (AUTO) 3.5 K/uL (0.60-3.4); LYMPHOCYTES % (AUTO) 29.9 (10.0-50.0); MEAN CORPUSCULAR HEMOGLOBIN 30.3 pg (27.0-31.0); MEAN CORPUSCULAR HGB CONC 32.9 (31.8-35.4); MONOCYTES % (AUTO) 8.4 (0-10); NEUTROPHILS # (AUTO) 6.8 K/ul (2.0-6.9); NEUTROPHILS % (AUTO) 58.4 % (42.2-75.2); PLATELET COUNT 391 10^3/uL (140-440); RDW COEFFICIENT OF VARIATION 14.3 % (11.6-14.8); RED BLOOD COUNT 4.52 10^6/ul (4.20-5.40); WHITE BLOOD COUNT 11.64 K/ul (4.6-10.2)
[2024-03-01 06:13] LABS: ALANINE AMINOTRANSFERASE 21.8 U/L (0-35); ALBUMIN 3.4 g/dL (3.5-5.0); ALKALINE PHOSPHATASE 101.5 U/L (53-141); ASPARTATE AMINO TRANSFERASE 26.2 U/L (14-36); BILIRUBIN,TOTAL 0.68 mg/dL (0.2-1.3); BLOOD UREA NITROGEN 13.1 mg/dL (7-17); CALCIUM 9.02 mg/dL (8.4-10.2); CARBON DIOXIDE 25.3 mmol/L (22-30.0); CHLORIDE 103.4 mmol/L (98-107); GLUCOSE 93.8 mg/dL (74-106); MAGNESIUM 2.1 mg/dL (1.6-2.3); POTASSIUM 3.81 mmol/L (3.5-5.1); SODIUM 132.9 mmol/L (134.5-145); TOTAL PROTEIN 6.38 g/dL (6.3-8.2)
[2024-03-01 06:38] LABS: THYROID STIMULATING HORMONE 2.85 uIU/L (0.465-4.68)
[2024-03-01 10:17] VITALS: BP 119/86; PULSE 92; RESP 18; TEMP 97.2
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
== END 2024-03-01 11:38 | disposition home or self-care (01) ==
LOC: ED 13:48 → MEDSURG B 13:48
PROVIDERS: ADMIT Hospitalist; ATTEND Physician Assistant
DX: I25.10 Atherosclerotic heart disease of native coronary artery without angina pectoris; F41.1 Generalized anxiety disorder; R06.02 Shortness of breath; I71.23 Aneurysm of the descending thoracic aorta, without rupture; K21.9 Gastro-esophageal reflux disease without esophagitis; Z95.5 Presence of coronary angioplasty implant and graft; E78.5 Hyperlipidemia, unspecified; I10 Essential (primary) hypertension; R00.2 Palpitations; R09.02 Hypoxemia; F17.210 Nicotine dependence, cigarettes, uncomplicated; J44.9 Chronic obstructive pulmonary disease, unspecified